=== PATIENT | female | born 1985 | race Two or more races ===

== ENCOUNTER 2022-12-21 15:40 | Inpatient (IN) | payer MEDICAID, OTHER ==
[~2022-12-21] VITALS: Ht 157.5 cm; Wt 108.3 kg
[2022-12-21] MEDS ORDERED: SODIUM CHLORIDE 0.9% 1,000 ML IV ONE ×2 (16:00)
[2022-12-21] MEDS ORDERED: SODIUM CHLORIDE 0.9% 500 ML IV ONE (16:00)
[2022-12-21 16:21] VITALS: PULSE 65
[2022-12-21 16:27] LABS: Urine Bacteria FEW /hpf (None Seen); Urine Blood Negative /uL (Negative); Urine Clarity Clear (Clear); Urine Color Colorless (Yellow); Urine Protein, UAD Negative (Negative); Urine Specific Gravity 1.026 (1.001-1.035); Urine Urobilinogen Normal (Negative); Urine WBC 6 /hpf (0 - 5); Urine pH 5.5 (5.0-8.0)
[2022-12-21 16:30] LABS: Basophils # (auto) 0 10 ^3/uL (0-0.2); Basophils % (auto) 0.6 % (0.0-2.0); Eosinophils # (auto) 0.3 10 ^3/uL (0-0.8); Eosinophils % (auto) 3.9 % (0.0-7.0); Hemoglobin 14.8 g/dL (12.2-16.2); Lymphocytes # (auto) 3.5 10 ^3/uL (0.4-5.4); Lymphocytes % (auto) 42.7 % (10.0-50.0); Mean Corpuscular Hemoglobin 30.2 pg (28.0-32.0); Mean Corpuscular Hgb Conc. 34.4 g/dL (32.0-36.0); Monocytes # (auto) 0.7 10 ^3/uL (0-1.3); Neutrophils # (auto) 3.6 10 ^3/uL (1.6-8.6); Neutrophils % (auto) 43.8 % (37.0-80.0); Nucleated Red Blood Cells % 0.1 %; Red Blood Cells 4.89 10^6/uL (4.0-5.20); Red Cell Distribution Width 13.2 % (11.8-14.3); White Blood Cell 8.3 10^3/uL (4.4-10.8)
[2022-12-21 16:56] LABS: Albumin 3.1 g/dL (3.4-5.0); Calcium 8.6 mg/dL (8.5-10.1); Magnesium 2.1 mg/dL (1.6-2.6); Potassium 4.3 mmol/L (3.5-5.1)
[2022-12-21 16:59] LABS: BUN/Creatinine Ratio 14.7 (10.0-20.0); Bilirubin, Total 0.3 mg/dL (0.2-1.0); Total Protein 6.7 g/dL (6.4-8.2)
[2022-12-21] MEDS ORDERED: ONDANSETRON HCL 4 MG/2 ML VIAL IV PRN (19:00)
[2022-12-21] MEDS ORDERED: DEXTROSE (50%) 50ML SYRG IV PRN (19:00)
[2022-12-21] MEDS ORDERED: ACETAMINOPHEN 325 MG TAB PO PRN (19:00)
[2022-12-21] MEDS ORDERED: DOCUSATE SOD 100 MG CAP PO PRN (19:00)
[2022-12-21] MEDS: SODIUM CHLORIDE 0.9% 1,000 ML IV SCH (19:57)
[2022-12-21] MEDS: CIPROFLOXACIN HCL 500 MG TAB PO SCH (19:57)
[2022-12-21] MEDS: ACCU-CHEK COMFORT CURVE STRIP VI SCH (22:59)
[2022-12-21 23:00] VITALS: PULSE 97; RESP 18; O2SAT 95
[2022-12-21] MEDS: InsuLIN REG 1unit/0.01ml Soln (100units/ml) SC SCH (23:08)
[2022-12-22 05:01] LABS: Basophils # (auto) 0 10 ^3/uL (0-0.2); Basophils % (auto) 0.4 % (0.0-2.0); Eosinophils # (auto) 0.3 10 ^3/uL (0-0.8); Eosinophils % (auto) 3.3 % (0.0-7.0); Hematocrit 40.6 % (36.0-46.0); Lymphocytes # (auto) 4.5 10 ^3/uL (0.4-5.4); Lymphocytes % (auto) 46.2 % (10.0-50.0); Mean Corpuscular Hemoglobin 30.1 pg (28.0-32.0); Mean Corpuscular Hgb Conc. 34.4 g/dL (32.0-36.0); Mean Corpuscular Volume 87.4 fL (80.0-100.0); Monocytes # (auto) 0.9 10 ^3/uL (0-1.3); Monocytes % (auto) 9.2 % (0.0-12.0); Neutrophils # (auto) 3.9 10 ^3/uL (1.6-8.6); Neutrophils % (auto) 40.9 % (37.0-80.0); Nucleated Red Blood Cells % 0.1 %; Red Blood Cells 4.65 10^6/uL (4.0-5.20); Red Cell Distribution Width 13.2 % (11.8-14.3); White Blood Cell 9.7 10^3/uL (4.4-10.8)
[2022-12-22 05:03] LABS: Albumin 2.9 g/dL (3.4-5.0); Calcium 8.4 mg/dL (8.5-10.1); Potassium 3.9 mmol/L (3.5-5.1)
[2022-12-22 05:08] LABS: BUN/Creatinine Ratio 13.8 (10.0-20.0); Bilirubin, Total 0.4 mg/dL (0.2-1.0); Total Protein 6.7 g/dL (6.4-8.2)
[2022-12-22 05:15] VITALS: PULSE 84; RESP 19; O2SAT 96
[2022-12-22] MEDS: SODIUM CHLORIDE 0.9% 1,000 ML IV SCH ×2 (05:15→15:16)
[2022-12-22] MEDS: ACCU-CHEK COMFORT CURVE STRIP VI SCH ×4 (06:29→23:36)
[2022-12-22] MEDS: InsuLIN REG 1unit/0.01ml Soln (100units/ml) SC SCH ×4 (06:30→23:45)
[2022-12-22 07:54] VITALS: PULSE 98
[2022-12-22] MEDS: CIPROFLOXACIN HCL 500 MG TAB PO SCH ×2 (08:08→19:01)
[2022-12-22] MEDS ORDERED: metFORMIN HYDROCHLORIDE 850 MG TAB PO ONE (11:45)
[2022-12-22] MEDS: metFORMIN HYDROCHLORIDE 850 MG TAB PO SCH (17:55)
[2022-12-22 22:32] VITALS: BP 114/64; PULSE 91; RESP 20; TEMP 98.6; O2SAT 94
[2022-12-23] MEDS: SODIUM CHLORIDE 0.9% 1,000 ML IV SCH ×2 (00:09→13:03)
[2022-12-23 05:00] VITALS: BP 102/57; PULSE 79; RESP 20; TEMP 98.4; O2SAT 96
[2022-12-23] MEDS: ACCU-CHEK COMFORT CURVE STRIP VI SCH ×2 (05:55→12:59)
[2022-12-23] MEDS: InsuLIN REG 1unit/0.01ml Soln (100units/ml) SC SCH ×2 (06:32→13:02)
[2022-12-23 08:00] LABS: BUN/Creatinine Ratio 14.5 (10.0-20.0)
[2022-12-23] MEDS: CIPROFLOXACIN HCL 500 MG TAB PO SCH (08:24)
[2022-12-23] MEDS: metFORMIN HYDROCHLORIDE 850 MG TAB PO SCH (08:24)
[2022-12-23 09:00] VITALS: BP 107/62; PULSE 79; RESP 20; TEMP 97.9; O2SAT 94
[2022-12-23 12:37] VITALS: BP 108/61; PULSE 88; RESP 20; TEMP 98.6; O2SAT 95
[2022-12-23] MEDS ORDERED: NICO14DI29 TD (12:56)
[2022-12-23] MEDS ORDERED: NICO21DI37 TD (12:56)
[2022-12-23] MEDS ORDERED: EMPA1TAB PO (12:56)
[2022-12-23] MEDS ORDERED: NICO7DIS19 TD (12:56)
[2022-12-23] MEDS ORDERED: METF-371 PO (12:56)
== END 2022-12-23 16:19 | disposition home or self-care (01) | DRG 420 ==
LOC: EDBD 15:40 → ER 15:40 → OVERFLOW 18:54 → WEST WING 12-22 22:10
PROVIDERS: ADMIT Nurse Practitioner Family; ATTEND Internal Medicine
DX: E11.65 Type 2 diabetes mellitus with hyperglycemia (principal); E66.01 Morbid (severe) obesity due to excess calories; K42.9 Umbilical hernia without obstruction or gangrene; J44.9 Chronic obstructive pulmonary disease, unspecified; Z79.84 Long term (current) use of oral hypoglycemic drugs; Z90.49 Acquired absence of other specified parts of digestive tract; Z68.41 Body mass index [BMI] 40.0-44.9, adult; Z79.899 Other long term (current) drug therapy
CPT/HCPCS: 36415; 71046; 80048; 80053; 81001; 82962; 83036; 83690; 83735; 84702; 85025; 93005; G0378; J1815

== ENCOUNTER 2023-12-31 19:38 | Inpatient (IN) | payer MEDICAID ==
[~2023-12-31] VITALS: Ht 157.5 cm; Wt 107.0 kg
[~2023-12-31 19:38] MED LIST: EMPA1TAB PO; METF-371 PO; NICO14DI29 TD; NICO21DI37 TD; NICO7DIS19 TD
[2023-12-31] MEDS: SODIUM CHLORIDE 0.9% 1,000 ML IV ONE (20:56)
[2023-12-31] MEDS: methylPREDNISolone SOD SUCC 125 MG/2 ML VL IV ONE (20:56)
[2023-12-31] MEDS: FAMOTIDINE (10MG/ML) 2ML VL IV ONE (20:56)
[2023-12-31] MEDS: diphenhdrAMINE HCL 50 MG/1 ML VL IV ONE (20:56)
[2023-12-31 21:03] VITALS: RESP 18; O2SAT 94
[2024-01-01] VITALS (9 sets, daily range): BP systolic 99–121; BP diastolic 49–63; PULSE 68–99; RESP 16–20; TEMP 97.5–98.7; O2SAT 0–98
[2024-01-01] MEDS: SODIUM CHLORIDE 0.9% 1,000 ML IV ONE (00:04)
[2024-01-01 00:33] LABS: Basophils # (auto) 0.1 10 ^3/uL (0-0.2); Basophils % (auto) 0.7 % (0.0-2.0); Eosinophils # (auto) 0.1 10 ^3/uL (0-0.8); Eosinophils % (auto) 0.7 % (0.0-7.0); Hematocrit 41.5 % (36.0-46.0); Hemoglobin 14.2 g/dL (12.2-16.2); Lymphocytes # (auto) 1.3 10 ^3/uL (0.4-5.4); Lymphocytes % (auto) 15.4 % (10.0-50.0); Mean Corpuscular Hemoglobin 30.9 pg (28.0-32.0); Mean Corpuscular Hgb Conc. 34.2 g/dL (32.0-36.0); Mean Corpuscular Volume 90.1 fL (80.0-100.0); Monocytes # (auto) 0.2 10 ^3/uL (0-1.3); Monocytes % (auto) 2.6 % (0.0-12.0); Neutrophils % (auto) 80.6 % (37.0-80.0); Platelet Count (auto) 325 10^3/uL (140-450); Red Cell Distribution Width 13.4 % (11.8-14.3); White Blood Cell 8.7 10^3/uL (4.4-10.8)
[2024-01-01 00:37] LABS: Chloride 106 mmol/L (98-107); Potassium 3.9 mmol/L (3.5-5.1)
[2024-01-01 00:38] LABS: Anion Gap 8 (5-15); Carbon Dioxide 23 mmol/L (20-30); Sodium 137 mmol/L (136-145)
[2024-01-01 00:39] LABS: Calcium 8.6 mg/dL (8.7-10.4)
[2024-01-01 00:44] LABS: BUN/Creatinine Ratio 9.8 (10.0-20.0); Blood Urea Nitrogen 8 mg/dL (9-23)
[2024-01-01 00:51] LABS: Glucose 452 mg/dL (74-106)
[2024-01-01] MEDS: TRANEXAMIC ACID 1,000 MG in SODIUM CHL 0.9% 100 ML IV ONE ×2 (01:15→02:31)
[2024-01-01] MEDS: InsuLIN REG 1unit/0.01ml Soln (100units/ml) IV ONE (01:59)
[2024-01-01] MEDS: POTASSIUM CHL 20 Meq TABLET PO ONE (02:00)
[2024-01-01] MEDS ORDERED: DEXTROSE (50%) 50ML SYRG IV PRN (02:15)
[2024-01-01] MEDS ORDERED: diphenhdrAMINE HCL 50 MG/1 ML VL IV PRN (02:15)
[2024-01-01] MEDS: SODIUM CHLORIDE 0.9% 1,000 ML IV SCH (02:15)
[2024-01-01] MEDS ORDERED: ONDANSETRON HCL 4 MG/2 ML VIAL IV PRN (02:15)
[2024-01-01] MEDS ORDERED: ACETAMINOPHEN 325 MG TAB PO PRN (02:15)
[2024-01-01] MEDS ORDERED: TRANEXAMIC ACID 10 ML ONE (02:22)
[2024-01-01 02:36] LABS: Urine Bacteria FEW /hpf (None Seen); Urine Blood Negative /uL (Negative); Urine Clarity Clear (Clear); Urine Color Colorless (Yellow); Urine Hyaline Cast FEW /lpf (0 - 2); Urine Protein, UAD Negative (Negative); Urine Specific Gravity 1.036 (1.001-1.035); Urine Urobilinogen Normal (Negative); Urine WBC 2 /hpf (0 - 5)
[2024-01-01] MEDS ORDERED: MORPHINE SULFATE INJ 2 MG/ml SYRG IV PRN (03:15)
[2024-01-01] MEDS ORDERED: NITROGLYCERIN 0.4 MG SL TAB SL PRN (03:15)
[2024-01-01] MEDS: ACCU-CHEK COMFORT CURVE STRIP VI SCH (04:00)
[2024-01-01] MEDS: InsuLIN REG 1unit/0.01ml Soln (100units/ml) SC SCH (04:00)
[2024-01-01 05:30] LABS: COVID19 ANTIGEN SOFIA FIA NEGATIVE (NEGATIVE); Rapid Influenza A Negative (Negative); Rapid Influenza B Negative (Negative)
[2024-01-01] MEDS: methylPREDNISolone SOD SUCC 40 MG/ML VL IV SCH (05:55)
[2024-01-01] MEDS: FAMOTIDINE (10MG/ML) 2ML VL IV SCH (09:53)
[2024-01-01] MEDS ORDERED: DOXY50CA PO (15:34)
[2024-01-01] MEDS: DOXYCYCLINE 100 MG TAB/CAP PO SCH (21:23)
[2024-01-01] MEDS: INSULIN LANTUS (GLARGINE) 1 /0.01ml (100units/ml) SC SCH (21:32)
[2024-01-02] VITALS (7 sets, daily range): BP systolic 100–128; BP diastolic 55–84; PULSE 62–101; RESP 17–19; TEMP 97.6–98.1; O2SAT 96–98
[2024-01-02 06:28] LABS: Basophils # (auto) 0 10 ^3/uL (0-0.2); Basophils % (auto) 0.2 % (0.0-2.0); Eosinophils # (auto) 0 10 ^3/uL (0-0.8); Hematocrit 39.2 % (36.0-46.0); Hemoglobin 13.3 g/dL (12.2-16.2); Lymphocytes % (auto) 16.5 % (10.0-50.0); Mean Corpuscular Hemoglobin 30.2 pg (28.0-32.0); Mean Corpuscular Hgb Conc. 33.9 g/dL (32.0-36.0); Mean Corpuscular Volume 89.1 fL (80.0-100.0); Monocytes # (auto) 0.6 10 ^3/uL (0-1.3); Monocytes % (auto) 4.8 % (0.0-12.0); Neutrophils # (auto) 9.4 10 ^3/uL (1.6-8.6); Neutrophils % (auto) 78.5 % (37.0-80.0); Nucleated Red Blood Cells % 0.1 %; Platelet Count (auto) 337 10^3/uL (140-450); Red Cell Distribution Width 13.5 % (11.8-14.3)
[2024-01-02 06:55] LABS: Alanine Aminotransferase 50 U/L (7-40); Albumin 3.6 g/dL (3.2-4.8); Alkaline Phosphatase 70 U/L (46-116); Anion Gap 3 (5-15); BUN/Creatinine Ratio 13.4 (10.0-20.0); Blood Urea Nitrogen 9 mg/dL (9-23); Calcium 9.1 mg/dL (8.7-10.4); Carbon Dioxide 26 mmol/L (20-30); Chloride 107 mmol/L (98-107); Glucose 290 mg/dL (74-106); Potassium 3.7 mmol/L (3.5-5.1); Sodium 136 mmol/L (136-145)
[2024-01-02 06:56] LABS: Aspartate Aminotransferase 36 U/L (13-40); Bilirubin, Total 0.5 mg/dL (0.2-1.0)
[2024-01-02] MEDS: HYDROcodone-ACET 5/325MG TAB PO PRN (11:24)
[2024-01-03 01:00] VITALS: BP 94/51; PULSE 61; RESP 18; TEMP 97.8; O2SAT 93
[2024-01-03 05:00] VITALS: BP 128/91; PULSE 64; RESP 18; TEMP 98.1; O2SAT 97
[2024-01-03 08:00] VITALS: PULSE 80
[2024-01-03] MEDS: DOCUSATE SOD 100 MG CAP PO PRN (08:11)
[2024-01-03 09:00] VITALS: BP 112/64; PULSE 78; RESP 18; TEMP 97.9; O2SAT 92
[2024-01-03] MEDS ORDERED: PRED20TA2 PO (12:55)
[2024-01-03 13:00] VITALS: BP 125/68; PULSE 56; RESP 18; TEMP 98.2; O2SAT 96
[2024-01-03] MEDS ORDERED: METF-371 PO (13:32)
[2024-01-03] MEDS ORDERED: EMPA1TAB PO (13:32)
[2024-01-03 15:27] VITALS: BP 125/68; PULSE 56; RESP 18; TEMP 98.2; O2SAT 96
[2024-01-03] MEDS ORDERED: InsuLIN REG 1unit/0.01ml Soln (100units/ml) SC SCH (16:00)
[2024-01-03] MEDS ORDERED: INSULIN LANTUS (GLARGINE) 1 /0.01ml (100units/ml) SC SCH (22:00)
[2024-01-04 08:50] LABS: Hepatitis B Surface Antigen Negative (Negative)
[2024-01-04 09:12] LABS: Hepatitis C Antibody Negative (Negative)
== END 2024-01-03 16:30 | disposition home or self-care (01) | DRG 811 ==
LOC: ER 19:38 → TELE 01-01 03:01 → TELE-WESTW 01-01 03:02
PROVIDERS: ADMIT Nurse Practitioner Family; ATTEND Nurse Practitioner Family
DX: T78.3XXA Angioneurotic edema, initial encounter (principal); R65.10 Systemic inflammatory response syndrome (SIRS) of non-infectious origin without acute organ dysfunction; E11.65 Type 2 diabetes mellitus with hyperglycemia; K80.20 Calculus of gallbladder without cholecystitis without obstruction; Z20.822 Contact with and (suspected) exposure to COVID-19; R42 Dizziness and giddiness; J45.909 Unspecified asthma, uncomplicated; X58.XXXA Exposure to other specified factors, initial encounter; Z79.899 Other long term (current) drug therapy; Y93.89 Activity, other specified; Y92.89 Other specified places as the place of occurrence of the external cause; Y99.8 Other external cause status
CPT/HCPCS: 36415; 80048; 80053; 81001; 82962; 85025; 86803; 87340; 87426; 87804; 96361; 96365; 96375; G0378; J1815; J3490

== ENCOUNTER 2024-07-28 18:29 | Emergency (ER) | payer MEDICAID ==
[~2024-07-28] VITALS: Ht 157.5 cm; Wt 95.1 kg
[~2024-07-28 18:29] MED LIST changes: +DOXY50CA PO; -NICO14DI29 TD; -NICO21DI37 TD; -NICO7DIS19 TD; +PRED20TA2 PO
[2024-07-28] MEDS: ACETAMINOPHEN 325 MG TAB PO ONE (18:46)
[2024-07-28 22:16] LABS: COVID19 ANTIGEN SOFIA FIA NEGATIVE (NEGATIVE); Rapid Influenza A Negative (Negative); Rapid Influenza B Negative (Negative)
[2024-07-28] MEDS: SODIUM CHLORIDE 0.9% 1,000 ML IV ONE (23:02)
[2024-07-29 00:05] LABS: Basophils # (auto) 0.1 10 ^3/uL (0-0.2); Basophils % (auto) 0.8 % (0.0-2.0); Eosinophils # (auto) 0 10 ^3/uL (0-0.8); Eosinophils % (auto) 0.1 % (0.0-7.0); Hematocrit 40.8 % (36.0-46.0); Hemoglobin 14.5 g/dL (12.2-16.2); Lymphocytes # (auto) 2.4 10 ^3/uL (0.4-5.4); Lymphocytes % (auto) 25.3 % (10.0-50.0); Mean Corpuscular Hgb Conc. 35.4 g/dL (32.0-36.0); Mean Corpuscular Volume 87.3 fL (80.0-100.0); Monocytes # (auto) 1.6 10 ^3/uL (0-1.3); Monocytes % (auto) 17.3 % (0.0-12.0); Neutrophils # (auto) 5.4 10 ^3/uL (1.6-8.6); Neutrophils % (auto) 56.5 % (37.0-80.0); Nucleated Red Blood Cells % 0.1 %; Platelet Count (auto) 313 10^3/uL (140-450); Red Blood Cells 4.67 10^6/uL (4.0-5.20); Red Cell Distribution Width 13.3 % (11.8-14.3); White Blood Cell 9.5 10^3/uL (4.4-10.8)
--- NOTE | 2024-07-29 00:20 | DVH ---
CLINICAL HISTORY: fever, abd pain s/p hernia repair TECHNIQUE: CT of the abdomen and pelvis was performed without intravenous contrast. This exam was per formed according to our departmental dose optimization program. Up-to-date CT equipment and radiation dose reduction techniques are utilized as appropriate. COMPARISON: None FINDINGS: Lower Thorax: Linear bibasilar scarring or atelectasis. Normal-sized heart. Liver and Biliary system: Normal-sized liver. Mild hepatic steatosis. Otherwise unremarkable. Spleen: Unremarkable. Adrenal Glands and Kidneys: Unremarkable. Pancreas and Retroperitoneum: Unremarkable. Aorta and Major Vessels: Unremarkable. Bowel, Mesentery and Peritoneal space: Prior appendectomy. Normal caliber small and large bowel. Trac e ascites. No fluid collection or free air. Pelvis: Urinary bladder is mildly distended. The uterus and ovaries are grossly unremarkable. There i s no pelvic lymphadenopathy Abdominal wall and Osseous Structures: Minor lower thoracic and lumbar spondylosis. No destructive os seous lesion. There is a small loculated fluid collection in the midline anterior subjacent to the chatterjee praumbilical midline anterior abdominal wall measuring 1.1 x 5.6 cm on series 2, image 64. There is a supraumbilical midline abdominal wall hernia containing fluid likely the site of recent reported rep air IMPRESSION: 1. Small loculated fluid collection in the midline anterior abdomen subjacent to the supraumbilical m idline anterior abdominal wall measuring up to 5.6 cm transverse which could reflect a postoperative collection or small abscess. 2. Midline supraumbilical abdominal wall hernia containing fluid which may be the site of recent repo rted repair. 3. Mild hepatic steatosis. 4. Prior appendectomy.
[2024-07-29 00:23] LABS: Alanine Aminotransferase 26 U/L (7-40); Albumin 4.4 g/dL (3.2-4.8); Alkaline Phosphatase 73 U/L (46-116); Anion Gap 8 (5-15); Aspartate Aminotransferase 22 U/L (13-40); Bilirubin, Total 0.6 mg/dL (0.2-1.0); Blood Urea Nitrogen 12 mg/dL (9-23); Calcium 8.9 mg/dL (8.7-10.4); Carbon Dioxide 25 mmol/L (20-31); Chloride 104 mmol/L (98-107); Lipase 36 U/L (12-53); Sodium 137 mmol/L (136-145); Total Protein 7.2 g/dL (5.7-8.2)
[2024-07-29 00:26] LABS: Glucose 122 mg/dL (74-106); Potassium 3.4 mmol/L (3.5-5.1)
--- NOTE | 2024-07-29 00:48 | ED.PDOC ---
GI ASSESSMENT HPI Comments THIS IS A 39-YEAR-OLD FEMALE PRESENTS TO THE ED CHIEF COMPLAINT FEVER, AND CHILLS X2 DAYS. PATIENT REPORTS FLU-LIKE SYMPTOMS. PATIENT ALSO MAKES NOTE OF POST DOUBLE HERNIA UMBILICAL REPAIR ON 07/15/2024. ALSO COMPLAINING OF INTERMITTENT ABDOMINAL PAIN AT THE SITE SHE NOTES NO INCREASING PAIN SINCE THE SURGERY. SHE REPORTS RELATED SYMPTOMS OF NAUSEA WITHOUT VOMITING. CURRENT HISTORY IS TYPE 2 DIABETES. DENIES VOMITING, CHEST PAIN, SHORTNESS OF BREATH, DIARRHEA, RECENT ILL CONTACTS OR RECENT TRAVEL. Chief Complaint: Flu like Time Seen by MD: 18:43 Reviewed Notes: Nurses Notes, Medications, Allergies Allergies: Coded Allergies: NO KNOWN ALLERGIES (Unverified , 12/21/22) Home Meds Active Scripts Empagliflozin (Jardiance) 10 Mg Tab, 10 MG PO DAILY for 30 Days, #30 TAB 3 Refills Prov:KYLE BRANNON MD 01/03/24 Metformin Hydrochloride (Metformin Hcl) 850 Mg Tab, 850 MG PO BIDWM for 30 Days, #60 TAB 3 Refills Prov:KYLE BRANNON MD 01/03/24 Prednisone (Prednisone) 20 Mg Tab, 20 MG PO DAILY, #7 TAB Prov:KYLE BRANNON MD 01/03/24 Doxycycline Hyclate (Doxycycline Hyclate) 50 Mg Cap, 2 CAP PO BID for 5 Days, #20 CAP Prov:KWAME LEY DO 01/01/24 Information Source: Patient Mode of Arrival: Ambulatory Past Medical History PAST MEDICAL HISTORY: Asthma, DM, Gallstones 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, Hernia Repair 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 Hx Family History Family History: Unknown Social History Smoker: Non-Smoker Alcohol: Denies ETOH Use Drugs: Denies Drug Use Lives In: Home Constitutional: reports: chills, fever; denies: diaphoresis, fatigue, malaise, sweats, weakness, others EENTM: denies: blurred vision, double vision, ear bleeding, ear discharge, ear drainage, ear pain, ear ringing, eye pain, eye redness, hearing loss, mouth pain, mouth swelling, nasal discharge, nose bleeding, nose congestion, nose pain, photophobia, tearing, throat pain, throat swelling, voice changes, others Respiratory: denies: cough, hemoptysis, orthopnea, SOB at rest, shortness of breath, SOB with excertion, stridor, wheezing, others Gastrointestinal: reports: abdomen distended, abdominal pain, nausea; denies: b lood streaked bowels, constipated, diarrhea, dysphagia, difficulty swallowing, hematemesis, melena, poor appetite, poor fluid intake, rectal bleeding, rectal pain, vomiting, others Genitourinary: denies: abnormal vagina bleeding, burning, dyspareunia, dysuria, flank pain, frequency, hematuria, incontinence, pain, , vagina discharge, urgency, others Neurological: denies: dizziness, fainting, headache, left sided numbness, left sided weakness, numbness, paresthesia, pre-existing deficit, right sided numbness, right sided weakness, seizure, speech problems, tingling, tremors, weakness, others Musculoskeletal: denies: back pain, gout, joint pain, joint swelling, muscle pain, muscle stiffness, neck pain, others Integumetry: denies: bruises, change in color, change in hair/nails, dryness, laceration, lesions, lumps, rash, wounds, others Allergic/Immunocompromised: denies: Difficulty Healing, Frequent Infections, Hives, Itching, others Hematologic/Lymphatic: denies: anemia, blood clots, easy bleeding, easy bruising, swollen glands, others Endocrine: denies: excessive hunger, excessive sweating, excessive thirst, excessive urination, flushing, intolerance to cold, intolerance to heat, unexplained weight gain, unexplained weight loss, others Psychiatric: denies: anxiety, bipolar disorder, depression, hopeless, panic disorder, schizophrenia, sleepless, suicidal, others Physical Exam General Appearance: No Apparent Distress, Normal HEENT: Normal ENT Inspection, Pharynx Normal, TMs Normal Neck: Full Range of Motion, Non-Tender Respiratory: Chest Non-Tender, No Respiratory Distress, Normal Breath Sounds Cardiovascular: No Edema, No JVD, No Murmur, No Gallop, Normal Peripheral Pulses, Regular Rate/Rhythm Breast Exam: Deferred Gastrointestinal: No Organomegaly, No Pulsatile Mass, Normal Bowel Sounds, Soft, Tenderness (DIFFUSE TENDERNESS NO REBOUND TENDERNESS NOTED) Genitalia: Deferred Pelvic: Deferred Rectal: Deferred Extremities: Normal capillary refill, Normal inspection, Normal range of motion, Non-tender, No pedal edema Musculoskeletal : Apperance: Normal Neurologic: Alert, radio television technical director II-XII nml as Tested, No Motor Deficits, Normal Affect, Normal Mood, No Sensory Deficits Cerebellar Function: Normal Reflexes: Normal Skin: Dry, Normal Color, Warm Lymphatic: No Adenopathy Was a procedure done? Was a procedure done?: No GI differential Dx Differential Diagnosis: Gastritis/PUD, Gastroenteritis, Inflammatory BD, UTI, Urolithiasis X-Ray, Labs, Meds, VS Vital Signs Date Time Temp Pulse Resp B/P (MAP) Pulse Ox O2 Delivery O2 Flow Rate FiO2 07/29/24 03:18 100.6 125 18 137/75 (95) 95 100.6 07/29/24 03:13 78 18 97 Room Air* 0 21 07/28/24 21:02 100.2 136 12 123/68 (86) 95 100.2 07/28/24 18:46 100.6 07/28/24 18:39 18 97 Room Air 0 07/28/24 18:39 100.6 141 18 119/84 (96) 97 100.6 Lab Test 07/28/24 23:39 07/28/24 21:40 07/28/24 18:36 Range/Units White Blood Count 9.5 4.4-10.8 10^3/uL Red Blood Count 4.67 4.0-5.20 10^6/uL Hemoglobin 14.5 12.2-16.2 g/dL Hematocrit 40.8 36.0-46.0 % Mean Corpuscular Volume 87.3 80.0-100.0 fL Mean Corpuscular Hemoglobin 31.0 28.0-32.0 pg Mean Corpuscular Hemoglobin Concent 35.4 32.0-36.0 g/dL Red Cell Distribution Width 13.3 11.8-14.3 % Platelet Count 313 140-450 10^3/uL Mean Platelet Volume 7.7 6.9-10.8 fL Neutrophils (%) (Auto) 56.5 37.0-80.0 % Lymphocytes (%) (Auto) 25.3 10.0-50.0 % Monocytes (%) (Auto) 17.3 H 0.0-12.0 % Eosinophils (%) (Auto) 0.1 0.0-7.0 % Basophils (%) (Auto) 0.8 0.0-2.0 % Neutrophils # (Auto) 5.4 1.6-8.6 10 ^3/uL Lymphocytes # (Auto) 2.4 0.4-5.4 10 ^3/uL Monocytes # (Auto) 1.6 H 0-1.3 10 ^3/uL Eosinophils # (Auto) 0 0-0.8 10 ^3/uL Basophils # (Auto) 0.1 0-0.2 10 ^3/uL Nucleated Red Blood Cells 0.1 % Sodium Level 137 136-145 mmol/L Potassium Level 3.4 L 3.5-5.1 mmol/L Chloride Level 104 98-107 mmol/L Carbon Dioxide Level 25 20-31 mmol/L Anion Gap 8 5-15 Blood Urea Nitrogen 12 9-23 mg/dL Creatinine 0.80 0.550-1.02 mg/dL Glomerular Filtration Rate Calc 97 >90 mL/min BUN/Creatinine Ratio 15.0 10.0-20.0 Serum Glucose 122 H 74-106 mg/dL Lactic Acid Level 1.1 0.4-2.0 mmol/L Calcium Level 8.9 8.7-10.4 mg/dL Total Bilirubin 0.6 0.2-1.0 mg/dL Aspartate Amino Transferase (AST) 22 13-40 U/L Alanine Aminotransferase (ALT) 26 7-40 U/L Alkaline Phosphatase 73 46-116 U/L Total Protein 7.2 5.7-8.2 g/dL Albumin 4.4 3.2-4.8 g/dL Lipase 36 12-53 U/L Influenza Type A Antigen Negative Negative Influenza Type B Antigen Negative Negative SARS-CoV-2 Antigen (Rapid) Negative NEGATIVE POC Glucose 194 H 70-106 mg/dl Current Medications Medications (Trade) Dose Ordered Sig/Leatha Route Start Time Stop Time Status Last Admin Acetaminophen (Tylenol Tablet) 650 mg ONCE ONCE PO 07/28/24 18:45 07/28/24 18:46 DC 07/28/24 18:46 Sodium Chloride 1,000 ml @ 1,000 mls/hr Q1H ONCE IV 07/28/24 22:45 07/28/24 23:44 DC 07/28/24 23:02 Cefepime HCl 50 ml @ 12.5 mls/hr ONCE ONCE IV 07/29/24 00:45 07/29/24 04:44 07/29/24 01:55 Piperacillin Sod/ Tazobactam Sod 100 ml @ 100 mls/hr ONCE ONCE IV 07/29/24 00:45 07/29/24 01:44 DC 07/29/24 00:56 Sodium Chloride 1,000 ml @ 125 mls/hr Q8H ONCE IV 07/29/24 00:45 07/29/24 08:44 07/29/24 00:56 X-Ray, Labs, Meds, VS Comment 1. Small loculated fluid collection in the midline anterior abdomen subjacent to the supraumbilical midline anterior abdominal wall measuring up to 5.6 cm transverse which could reflect a postoperative collection or small abscess. 2. Midline supraumbilical abdominal wall hernia containing fluid which may be the site of recent reported repair. 3. Mild hepatic steatosis. 4. Prior appendectomy. PATIENT IS SET UP FOR TRANSFER TO [facility] UNDER DR. GUSTABO HOLMAN PATIENT STATES SURGERY ON 07/15/2024. [facility] TRANSFER SERVICE CALLED AND STATE THAT PATIENT HAS NO RECORD THERE CONFIRMED PATIENT'S DATE OF AND LEGAL NAME AND CONFIRMED THAT THAT IS WHERE SHE WENT PATIENT STATES [facility] IS WHERE SHE HAD HER SURGERY OUTPATIENT SPELLING AND DATE OF ARE CORRECT. Patient following accepted at [facility] patient is information was obtained. Patient awake alert oriented stable okay for BLS transport. Time of 1ST Reevaluation: 00:47 Reevaluation 1ST: Improved Patient Education/Counseling: Diagnosis, Treatment, Prognosis, Need For Follow Up Family Education/Counseling: No Family Present Departure 1 Departure Time of Disposition: 00:39 Impression: Primary Impression: Postoperative intra-abdominal abscess Disposition: 04 INTERMEDIATE CARE FACILITY Condition: Stable Discharged With: Self Critical Care Note Critical Care Time?: No Stability Stability form required: TAWANDA Kinsey Jul 29, 2024 00:48
[2024-07-29] MEDS: SODIUM CHLORIDE 0.9% 1,000 ML IV ONE (00:56)
[2024-07-29] MEDS: PIPERACILLIN-TAZOB 3.375GM 100 ML IV ONE (00:56)
[2024-07-29] MEDS: CEFEPIME 1GM/ 50ML 50 ML IV ONE (01:55)
[2024-07-29 03:13] VITALS: PULSE 78; RESP 18; O2SAT 97
[2024-07-29 03:18] VITALS: BP 137/75; PULSE 125; RESP 18; TEMP 100.6; O2SAT 95
== END 2024-07-29 04:32 | disposition short-term general hospital (02) ==
LOC: ER 18:29
DX: T81.43XA Infection following a procedure, organ and space surgical site, initial encounter (principal); K65.1 Peritoneal abscess; J45.909 Unspecified asthma, uncomplicated; E11.9 Type 2 diabetes mellitus without complications; Z90.49 Acquired absence of other specified parts of digestive tract; Z98.890 Other specified postprocedural states; Z79.899 Other long term (current) drug therapy; Z20.822 Contact with and (suspected) exposure to COVID-19
CPT/HCPCS: 36415; 74176; 80053; 82947; 83605; 83690; 85025; 87040; 87426; 87804; 96361; 96365; 96366; 96368; 99285; J0692; J2543; J7030; 82962

== ENCOUNTER → 2024-09-15 | Outpatient (CLI) | payer MEDICAID | END | disposition home or self-care (01) | LOC: Rad HDHVI 15:47 | PROVIDERS: ATTEND Internal Medicine Cardiovascular Disease | DX: R94.31 Abnormal electrocardiogram [ECG] [EKG] (principal) | CPT/HCPCS: 93306 ==

== ENCOUNTER 2024-09-28 14:22 | Outpatient (CLI) | payer MEDICAID ==
[~2024-09-28] VITALS: Ht 157.5 cm; Wt 93.9 kg
== END 2024-09-28 17:00 | disposition home or self-care (01) ==
LOC: Rad HDHVI 14:22
PROVIDERS: ATTEND Internal Medicine Cardiovascular Disease
DX: Z01.810 Encounter for preprocedural cardiovascular examination (principal); R00.0 Tachycardia, unspecified; E11.9 Type 2 diabetes mellitus without complications; R94.31 Abnormal electrocardiogram [ECG] [EKG]; E78.00 Pure hypercholesterolemia, unspecified; R07.89 Other chest pain; F17.210 Nicotine dependence, cigarettes, uncomplicated; Z82.49 Family history of ischemic heart disease and other diseases of the circulatory system
CPT/HCPCS: 78452; 93017; A9500; 96374

== ENCOUNTER 2025-01-07 20:01 | Emergency (ER) | payer MEDICAID ==
[~2025-01-07] VITALS: Ht 157.5 cm; Wt 204.0 kg
--- NOTE | 2025-01-07 20:57 | ED.PDOC ---
GI ASSESSMENT HPI Comments 39-year-old female who came to ER for abdominal pain. Patient for the past few hours has been complaining of heartburn. Like she is having a burning sensation over midsternal area, associated with nausea, vomiting and dizziness. Chief Complaint: Abdominal Pain Time Seen by MD: 20:56 Reviewed Notes: Nurses Notes Allergies: Coded Allergies: NO KNOWN ALLERGIES (Unverified , 12/21/22) Home Meds Active Scripts Empagliflozin (Jardiance) 10 Mg Tab, 10 MG PO DAILY for 30 Days, #30 TAB 3 Refills Prov:KYLE BRANNON MD 01/03/24 Metformin Hydrochloride (Metformin Hcl) 850 Mg Tab, 850 MG PO BIDWM for 30 Days, #60 TAB 3 Refills Prov:KYLE BRANNON MD 01/03/24 Prednisone (Prednisone) 20 Mg Tab, 20 MG PO DAILY, #7 TAB Prov:KYLE BRANNON MD 01/03/24 Doxycycline Hyclate (Doxycycline Hyclate) 50 Mg Cap, 2 CAP PO BID for 5 Days, #20 CAP Prov:KWAME LEY DO 01/01/24 Mode of Arrival: EMS Timing: Hours Duration: Since onset Prehospital treatment: None Quality: Burning Vomitus: Watery Stool: Normal Severity: Moderate Recent: None Recent Hx of: None Pain Location: Epigastric, Other (Midsternal) Modifying Factors: Nothing Associated sign and symptoms: Nausea, Vomiting, Abdominal Pain, Other (Chest pain) Past Medical History PAST MEDICAL HISTORY: Asthma, DM, Gallstones 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, 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 PEDIATRIC Hx Family History Family History: Unknown Social History Smoker: Non-Smoker Alcohol: Denies ETOH Use Drugs: Denies Drug Use Lives In: Home Constitutional: denies: chills, diaphoresis, fatigue, fever, malaise, sweats, weakness, others EENTM: denies: blurred vision, double vision, ear bleeding, ear discharge, ear drainage, ear pain, ear ringing, eye pain, eye redness, hearing loss, mouth pain, mouth swelling, nasal discharge, nose bleeding, nose congestion, nose pain, photophobia, tearing, throat pain, throat swelling, voice changes, others Respiratory: denies: cough, hemoptysis, orthopnea, SOB at rest, shortness of breath, SOB with excertion, stridor, wheezing, others Cardiovascular: reports: chest pain; denies: dizzy spells, diaphoresis, Dyspnea on exertion, edema, irregular heart beat, left arm pain, lightheadedness, palpitations, PND, syncope, others Gastrointestinal: reports: abdominal pain, nausea, vomiting; denies: abdomen distended, blood streaked bowels, constipated, diarrhea, dysphagia, difficulty swallowing, hematemesis, melena, poor appetite, poor fluid intake, rectal bleeding, rectal pain, others Genitourinary: denies: abnormal vagina bleeding, burning, dyspareunia, dysuria, flank pain, frequency, hematuria, incontinence, pain, , vagina discharge, urgency, others Neurological: denies: dizziness, fainting, headache, left sided numbness, left sided weakness, numbness, paresthesia, pre-existing deficit, right sided numbness, right sided weakness, seizure, speech problems, tingling, tremors, wea kness, others Musculoskeletal: denies: back pain, gout, joint pain, joint swelling, muscle pain, muscle stiffness, neck pain, others Integumetry: denies: bruises, change in color, change in hair/nails, dryness, l aceration, lesions, lumps, rash, wounds, others Allergic/Immunocompromised: denies: Difficulty Healing, Frequent Infections, Hives, Itching, others Hematologic/Lymphatic: denies: anemia, blood clots, easy bleeding, easy bruising, swollen glands, others Endocrine: denies: excessive hunger, excessive sweating, excessive thirst, excessive urination, flushing, intolerance to cold, intolerance to heat, unexplained weight gain, unexplained weight loss, others Psychiatric: denies: anxiety, bipolar disorder, depression, hopeless, panic disorder, schizophrenia, sleepless, suicidal, others Physical Exam General Appearance: No Apparent Distress, Normal HEENT: Normal ENT Inspection, Pharynx Normal, TMs Normal Neck: Full Range of Motion, Non-Tender, Normal, Normal Inspection Respiratory: Chest Non-Tender, Lungs Clear, No Accessory Muscle Use, No Respiratory Distress, Normal Breath Sounds Cardiovascular: No Edema, No JVD, No Murmur, No Gallop, Normal Peripheral Pulses, Regular Rate/Rhythm Breast Exam: Deferred Gastrointestinal: No Organomegaly, Non Tender, No Pulsatile Mass, Normal Bowel Sounds, Soft Genitalia: Deferred Pelvic: Deferred Rectal: Deferred Extremities: No calf tenderness, Normal capillary refill, Normal inspection, Normal range of motion, Non-tender, No pedal edema Musculoskeletal : Apperance: Normal Neurologic: Alert, air marshal II-XII nml as Tested, No Motor Deficits, Normal Affect, Normal Mood, No Sensory Deficits Cerebellar Function: Normal Reflexes: Normal Skin: Dry, Normal Color, Warm Lymphatic: No Adenopathy Was a procedure done? Was a procedure done?: No GI differential Dx Differential Diagnosis: Cholecystitis, Diverticular disease, Gastritis/PUD, Gastroenteritis, Pancreatitis, UTI X-Ray, Labs, Meds, VS Vital Signs Date Time Temp Pulse Resp B/P (MAP) Pulse Ox O2 Delivery O2 Flow Rate FiO2 01/07/25 21:40 91 18 100 Room Air 01/07/25 21:39 97.8 91 18 99/71 (80) 100 97.8 01/07/25 20:26 111 01/07/25 20:01 98.2 115 16 126/87 99 98.2 Lab Test 01/07/25 21:15 Range/Units White Blood Count 11.1 H 4.4-10.8 10^3/uL Red Blood Count 5.58 H 4.0-5.20 10^6/uL Hemoglobin 17.1 H 12.2-16.2 g/dL Hematocrit 49.1 H 36.0-46.0 % Mean Corpuscular Volume 87.9 80.0-100.0 fL Mean Corpuscular Hemoglobin 30.7 28.0-32.0 pg Mean Corpuscular Hemoglobin Concent 34.9 32.0-36.0 g/dL Red Cell Distribution Width 14.0 11.8-14.3 % Platelet Count 492 H 140-450 10^3/uL Mean Platelet Volume 7.9 6.9-10.8 fL Neutrophils (%) (Auto) 50.4 37.0-80.0 % Lymphocytes (%) (Auto) 38.2 10.0-50.0 % Monocytes (%) (Auto) 9.5 0.0-12.0 % Eosinophils (%) (Auto) 1.1 0.0-7.0 % Basophils (%) (Auto) 0.8 0.0-2.0 % Neutrophils # (Auto) 5.6 1.6-8.6 10 ^3/uL Lymphocytes # (Auto) 4.2 0.4-5.4 10 ^3/uL Monocytes # (Auto) 1.1 0-1.3 10 ^3/uL Eosinophils # (Auto) 0.1 0-0.8 10 ^3/uL Basophils # (Auto) 0.1 0-0.2 10 ^3/uL Nucleated Red Blood Cells 0.1 % Sodium Level 136 136-145 mmol/L Potassium Level 4.5 3.5-5.1 mmol/L Chloride Level 97 L 98-107 mmol/L Carbon Dioxide Level 29 20-31 mmol/L Anion Gap 10 5-15 Blood Urea Nitrogen 9 9-23 mg/dL Creatinine 0.83 0.550-1.02 mg/dL Glomerular Filtration Rate Calc 92 >90 mL/min BUN/Creatinine Ratio 10.8 10.0-20.0 Serum Glucose 176 H 74-106 mg/dL Calcium Level 10.6 H 8.7-10.4 mg/dL Total Bilirubin 0.7 0.2-1.0 mg/dL Aspartate Amino Transferase (AST) 21 13-40 U/L Alanine Aminotransferase (ALT) 30 7-40 U/L Alkaline Phosphatase 76 46-116 U/L Troponin I High Sensitivity < 3 L </=34 ng/L Total Protein 8.3 H 5.7-8.2 g/dL Albumin 4.9 H 3.2-4.8 g/dL Lipase 43 12-53 U/L Current Medications Medications (Trade) Dose Ordered Sig/Leatha Route Start Time Stop Time Status Last Admin Ondansetron HCl (Zofran Po) 8 mg ONCE ONCE PO 01/07/25 20:45 01/07/25 20:46 DC 01/07/25 21:36 Al Hydrox/Mg Hydrox/Simethicone (Maalox Plus) 30 ml ONCE ONCE PO 01/07/25 20:45 01/07/25 20:46 DC 01/07/25 21:36 Famotidine (Pepcid Tablet) 20 mg ONCE ONCE PO 01/07/25 20:45 01/07/25 20:46 DC 01/07/25 21:36 Time of 1ST Reevaluation: 20:52 Reevaluation 1ST: Unchanged Patient Education/Counseling: Diagnosis, Treatment Family Education/Counseling: No Family Present SEPSIS Sepsis Screen Date sepsis recognized/suspect: Jan 07, 2025 Time Sepsis recognized/suspect: 2000 Procedure: No On Antibiotic Therapy: No Respiratory Rate >20: No Heart Rate >90: No Temp<36 C (96.8 F) or >38.3 C: No SBP <90 or MAP <65 mmHG: No New Acute Mental Status Change: No Is the patient on CPAP, BIPAP,: No Physician Orders Electrocardigram (01/07/25 20:41) Vital Signs Date Time Temp Pulse Resp B/P (MAP) Pulse Ox O2 Delivery O2 Flow Rate FiO2 01/07/25 21:40 91 18 100 Room Air 01/07/25 21:39 97.8 91 18 99/71 (80) 100 97.8 01/07/25 20:26 111 01/07/25 20:01 98.2 115 16 126/87 99 98.2 Laboratory Tests Test 01/07/25 21:15 White Blood Count 11.1 10^3/uL (4.4-10.8) H Medications Medications Dose Ordered Sig/Leatha Route Start Time Stop Time Status Last Admin Dose Admin Al Hydrox/Mg Hydrox/Simethicone 30 ml ONCE ONCE PO 01/07/25 20:45 01/07/25 20:46 DC 01/07/25 21:36 Famotidine 20 mg ONCE ONCE PO 01/07/25 20:45 01/07/25 20:46 DC 01/07/25 21:36 Ondansetron HCl 8 mg ONCE ONCE PO 01/07/25 20:45 01/07/25 20:46 DC 01/07/25 21:36 Departure 1 Departure Time of Disposition: 23:00 Impression: Primary Impression: Dizziness Disposition: 01 HOME / SELF CARE / HOMELESS Condition: Stable Discharged With: Self Critical Care Note Critical Care Time?: No Stability Stability form required: No Heart Score Heart Score: Heart Score Response (Comments) Value History N/A 0 EKG N/A 0 Age N/A 0 Risk Factors N/A 0 Troponin N/A 0 Total 0 I personally scribed for RAMEZ SCOTT MD ([email or web address]) on 01/07/25 at 20:57. Electronically submitted by Gurinder Wasserman ([email or web address]). RAMEZ SCOTT MD Jan 07, 2025 20:57
[2025-01-07] MEDS: MAALOX PLUS or MAALOX 30 ML PO ONE (21:36)
[2025-01-07] MEDS: ONDANSETRON ODT 4 MG TAB PO ONE (21:36)
[2025-01-07] MEDS: FAMOTIDINE 20 MG TAB PO ONE (21:36)
[2025-01-07 21:39] VITALS: BP 99/71; TEMP 97.8
[2025-01-07 21:40] VITALS: PULSE 91; RESP 18; O2SAT 100
[2025-01-07 21:46] LABS: Hematocrit 49.1 % (36.0-46.0); Hemoglobin 17.1 g/dL (12.2-16.2); Mean Corpuscular Hemoglobin 30.7 pg (28.0-32.0); Mean Corpuscular Volume 87.9 fL (80.0-100.0); Nucleated Red Blood Cells % 0.1 %
[2025-01-07 21:55] LABS: Alanine Aminotransferase 30 U/L (7-40); Alkaline Phosphatase 76 U/L (46-116); Anion Gap 10 (5-15); BUN/Creatinine Ratio 10.8 (10.0-20.0); Bilirubin, Total 0.7 mg/dL (0.2-1.0); Blood Urea Nitrogen 9 mg/dL (9-23); Carbon Dioxide 29 mmol/L (20-31); Lipase 43 U/L (12-53); Potassium 4.5 mmol/L (3.5-5.1)
[2025-01-07 21:58] LABS: Albumin 4.9 g/dL (3.2-4.8); Calcium 10.6 mg/dL (8.7-10.4); Chloride 97 mmol/L (98-107); Glucose 176 mg/dL (74-106); Sodium 136 mmol/L (136-145); Total Protein 8.3 g/dL (5.7-8.2)
--- NOTE | 2025-01-08 19:46 | ECG ---
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
== END 2025-01-07 21:44 | disposition left against medical advice (07) ==
LOC: EDBD 20:01 → ER 20:01
DX: R42 Dizziness and giddiness (principal); J45.909 Unspecified asthma, uncomplicated; E11.9 Type 2 diabetes mellitus without complications; Z98.890 Other specified postprocedural states; Z90.49 Acquired absence of other specified parts of digestive tract
CPT/HCPCS: 36415; 80053; 83690; 84484; 85025; 93005; 99284; Q0162